=== PATIENT | male | born 1990 | race Caucasian/White ===

== ENCOUNTER 2020-08-24 19:44 | Inpatient (IN) | payer OTHER ==
[2020-08-24 19:57] VITALS: BMI 24.3
[2020-08-24] MEDS ORDERED: SODIUM CHLORIDE 0.9% 500 ML INFUS.BAG IV ONE (20:53)
[2020-08-24] MEDS ORDERED: ONDANSETRON 4 MG/2 ML VIAL ONE (21:06)
[2020-08-24] MEDS ORDERED: ONDANSETRON 4 MG/2 ML VIAL IVPUSH ONE (21:06)
[2020-08-24 21:41] LABS: BASO % 0.2 % (0-2.0); EOS % 0.3 % (0-4.5); HEMOGLOBIN 14.6 GM/dL (11.7-16.9); LYMPH % 11.4 % (8-40); MCH 30.5 pg (25.7-33.7); MCHC 33.3 g/dl (32.0-35.9); MEAN CELL VOLUME 91.8 fl (80-96); MEAN PLT VOLUME 9.2 fl (7.5-11.1); MONO % 15.6 % (3.8-10.2); NEUT % 72.5 % (42.8-82.8); PLATELET COUNT 140 K/MM3 (134-434); RDW 12.8 % (11.9-15.9); WHITE BLOOD COUNT 6.7 K/mm3 (4.0-10.0)
[2020-08-24 21:42] LABS: INR 1.12 (0.83-1.09); PROTHROMBIN TIME (PATIENT) 13.7 SEC (9.7-13.0)
[2020-08-24 21:57] LABS: CHLORIDE 106 mmol/L (98-107); POTASSIUM 3.8 mmol/L (3.5-5.1); SODIUM 141 mmol/L (136-145)
[2020-08-24 21:59] LABS: ALBUMIN 3.8 g/dl (3.4-5.0); ANION GAP 7 MMOL/L (8-16); BLOOD UREA NITROGEN 21.8 mg/dL (7-18); CO2 27 mmol/L (21-32)
[2020-08-24 22:01] LABS: GLUCOSE,RANDOM 117 mg/dL (74-106)
[2020-08-24 22:03] LABS: SGOT/AST 19 U/L (15-37); SGPT/ALT 34 U/L (13-61)
[2020-08-24 22:04] LABS: BILIRUBIN,TOTAL 0.5 mg/dL (0.2-1); TOT PROT 7.1 g/dl (6.4-8.2)
[2020-08-24 22:06] LABS: ALK PHOS 88 U/L (45-117)
[2020-08-25 06:32] LABS: COCAINE, UR NEGATIVE ng/ml (CUTOFF=300); PHENCYCLIDINE,URINE NEGATIVE ng/ml (CUTOFF=25); URINE BARBITURATES NEGATIVE ng/ml (CUTOFF=200)
[2020-08-25 06:47] LABS: METHADONE, UR NEGATIVE ng/ml (CUTOFF=300); OPIATES, URI NEGATIVE ng/ml (CUTOFF=300); URINE AMPHETAMINES NEGATIVE ng/ml (CUTOFF=500); URINE BENZODIAZEPINES NEGATIVE ng/ml (CUTOFF=200)
[2020-08-25] MEDS: SODIUM CHLORIDE 1,000 ML IV SCH (08:27)
[2020-08-25 08:29] LABS: BASO % 0.4 % (0-2.0); EOS % 1.2 % (0-4.5); HEMATOCRIT 41.4 % (35.4-49); MCH 30.9 pg (25.7-33.7); MCHC 33.8 g/dl (32.0-35.9); MEAN CELL VOLUME 91.4 fl (80-96); MEAN PLT VOLUME 8.7 fl (7.5-11.1); MONO % 25.2 % (3.8-10.2); NEUT % 47.2 % (42.8-82.8); PLATELET COUNT 144 K/MM3 (134-434); RBC 4.53 M/mm3 (4.00-5.60); RDW 12.9 % (11.9-15.9); WHITE BLOOD COUNT 4.1 K/mm3 (4.0-10.0)
[2020-08-25 08:44] LABS: CHLORIDE 109 mmol/L (98-107); POTASSIUM 4.2 mmol/L (3.5-5.1); SODIUM 143 mmol/L (136-145)
[2020-08-25 08:53] LABS: ALBUMIN 3.5 g/dl (3.4-5.0); ANION GAP 5 MMOL/L (8-16); BLOOD UREA NITROGEN 17.4 mg/dL (7-18); CALCIUM 9.2 mg/dL (8.5-10.1); CO2 28 mmol/L (21-32); GLUCOSE,RANDOM 94 mg/dL (74-106); HDL CHOLESTEROL 28 mg/dL (40-60)
[2020-08-25 08:55] LABS: MAGNESIUM 2.2 mg/dL (1.8-2.4)
[2020-08-25 08:57] LABS: ALK PHOS 80 U/L (45-117); BILIRUBIN,TOTAL 0.7 mg/dL (0.2-1); CHOLESTEROL 73 mg/dL (50-200); CREATININE 0.9 mg/dL (0.55-1.3); LDL CHOLESTEROL (ONLY SJRH) 45 mg/dL (5-100); PHOSPHOROUS 3.3 mg/dL (2.5-4.9); SGOT/AST 17 U/L (15-37); SGPT/ALT 36 U/L (13-61); TOT PROT 6.6 g/dl (6.4-8.2); TRIGLYCERIDES 42 mg/dL (0-150)
[2020-08-25 11:15] LABS: ANISOCYTOSIS 0; MACROCYTOSIS 0; PLATELET ESTIMATE NORMAL
[2020-08-25] MEDS ORDERED: PT OWN MED DRAWER 7, Y5N ONE (23:46)
[2020-08-25] MEDS: METHIMAZOLE 10 MG TABLET (FP) PO SCH (23:49)
[2020-08-26] MEDS ORDERED: PT OWN MED DRAWER 7, Y5N ONE ×2 (04:56→21:02)
[2020-08-26] MEDS: METHIMAZOLE 10 MG TABLET (FP) PO SCH ×3 (05:19→22:17)
[2020-08-26 07:25] LABS: BASO % 0.6 % (0-2.0); EOS % 1.4 % (0-4.5); HEMATOCRIT 43.3 % (35.4-49); HEMOGLOBIN 14.7 GM/dL (11.7-16.9); LYMPH % 31.1 % (8-40); MCH 31.2 pg (25.7-33.7); MCHC 33.9 g/dl (32.0-35.9); MEAN CELL VOLUME 92.1 fl (80-96); MEAN PLT VOLUME 9.5 fl (7.5-11.1); MONO % 21.1 % (3.8-10.2); NEUT % 45.8 % (42.8-82.8); PLATELET COUNT 141 K/MM3 (134-434); RDW 12.8 % (11.9-15.9); WHITE BLOOD COUNT 4.4 K/mm3 (4.0-10.0)
[2020-08-26 07:31] LABS: POTASSIUM 3.9 mmol/L (3.5-5.1)
[2020-08-26 07:35] LABS: ALBUMIN 3.5 g/dl (3.4-5.0)
[2020-08-26 07:37] LABS: BLOOD UREA NITROGEN 15.9 mg/dL (7-18); CALCIUM 9.1 mg/dL (8.5-10.1); MAGNESIUM 1.7 mg/dL (1.8-2.4)
[2020-08-26 07:39] LABS: CREATININE 0.8 mg/dL (0.55-1.3); PHOSPHOROUS 3.8 mg/dL (2.5-4.9)
[2020-08-26 07:41] LABS: BILIRUBIN,TOTAL 0.8 mg/dL (0.2-1); TOT PROT 6.4 g/dl (6.4-8.2)
[2020-08-26] MEDS: SODIUM CHLORIDE 1,000 ML IV SCH (08:44)
[2020-08-26 10:17] LABS: ANISOCYTOSIS 0; MACROCYTOSIS 0; PLATELET ESTIMATE DECREASED
[2020-08-26] MEDS ORDERED: MAGNESIUM SULF 50% (8.12 MEQ/2 ML-1 GM VIAL) IVPB ONE (18:24)
[2020-08-27] MEDS ORDERED: PT OWN MED DRAWER 7, Y5N ONE (06:36)
[2020-08-27] MEDS: METHIMAZOLE 10 MG TABLET (FP) PO SCH (06:42)
[2020-08-27 06:46] VITALS: TEMP 98.5
[2020-08-27 10:49] VITALS: BP 112/57; PULSE 89
[2020-08-28 17:11] LABS: THYROID STIM IMMUNOGLOBULIN 15.6 IU/L (0.00-0.55)
== END 2020-08-27 12:24 | disposition home or self-care (01) | DRG 424 ==
LOC: JER 19:44 → JERBED 08-25 02:09 → JICU 08-25 17:07
PROVIDERS: ADMIT Internal Medicine; ATTEND Family Medicine
DX: E05.90 Thyrotoxicosis, unspecified without thyrotoxic crisis or storm (principal); Z20.828 Contact with and (suspected) exposure to other viral communicable diseases; F12.90 Cannabis use, unspecified, uncomplicated; R00.0 Tachycardia, unspecified; R00.2 Palpitations
CPT/HCPCS: 36415; 71275-TC; 80053; 80061; 80307; 82550; 83036; 83605; 83721; 83735; 84100; 84436; 84439; 84443; 84445; 84481; 84484; 85025; 85610; 85730; 86376; 93005; 93010; 99285-25; C9803; Q9967; U0003